=== PATIENT | male | born 2000 | race Caucasian/White ===

== ENCOUNTER 2018-10-09 14:13 | Emergency (ER) | payer BC ==
[2018-10-09 14:27] VITALS: BP 114/67
--- NOTE | 2018-10-09 16:11 | EDPHY ---
General - History History Review: I reviewed the patient's medical records Smoking Status: Never smoked Time Seen by Provider: 10/09/18 15:16 Narrative: CHIEF COMPLAINT: Snowboard injury, laceration HISTORY OF PRESENT ILLNESS: Patient presents to emergency department by private vehicle with complaints of snowboard injury. He says he was boarding just prior to arrival at [place]. He says he collided with 1 of the snow machines. He was wearing a helmet goggles. He says he did not lose consciousness but has a laceration above his right eyebrow. Minimal headache. No nausea vomiting. No visual disturbance. He was able to board down without difficulty. He has no neck pain or stiffness. No chest, back or abdominal pain injury. No complaints of numbness, tingling weakness. Wound is minimally painful. Worse palpation movement. Does not radiate. Tetanus up-to-date. No other associated complaints or modifying factors. TIME OF INJURY: Just prior to arrival TETANUS STATUS: Less than 5 years MEDICAL/SURGICAL/SOCIAL HISTORY: uncomplicated. [employer] student. Originally from [place] REVIEW OF SYSTEMS: Ten systems reviewed and are negative unless otherwise noted in the HPI EXAMINATION: Vitals: Triage VS reviewed General Appearance: Alert, no distress. Well appearing. Head: normocephalic. Right eyebrow laceration as below. There is no Kapoor sign or raccoon eyes. No depression deformity. ENT: Pupils equal round reactive. EOM symmetric. Painless EOMs. No diplopia with EOMs. Airway widely patent. Able to move eyebrows symmetrically with deficit or right eye lid lag Neck: Supple nontender. Midline trachea. Cardiovascular: Regular rhythm. No murmur. Pulses normal throughout. Brisk cap refill Respiratory: Lungs clear in all mejias. Neurological: CN II-XII grossly intact. A&O, sensory symmetric, strength symmetric Skin: Warm and dry, no rash. 3cm right eyebrow laceration. no involvement of frontalis or galea. no foreign body. no involvement of right eyelid. mild right infraorbital ecchymosis only without raccoon eyes Extremities: Nontender, no pedal edema DIFFERENTIAL DIAGNOSES: Including but not limited to laceration, laceration complication, laceration foreign body, laceration with deep tissue injury MDM: 3:15 p.m. Simple laceration over the right eyebrow with minimal distraction and no injury to the underlying deep tissue structures. Patient was wearing a helmet and has no history or examination findings that warrant CT scan imaging by [facility] CT head rules or [place] criteria. He is awake alert. No acute distress but today. Laceration has been anesthetized. Proceed with irrigation and closure. 3:50 p.m. Closed head injury with eyebrow laceration that has been closed without difficulty. We discussed wound care and head injury precautions. We discussed returning here in 7 days for suture removal. I have provided referral information for Dr. Telles. We have discussed ED precautions. He is laughing and well appearing, and he is discharged home in stable condition. PROCEDURE: Laceration repair Consent: Verbal Location: right eyebrow Length of repair: 3cm Complexity: complex Layer involvement: Anesthesia: 0.25% Marcaine with epinephrine, 7 mL Irrigation: Extensive Debridement: none Procedure description: Following good anesthesia, the wound was copiously irrigated. Wound bed was explored with a sterile glove, and there is no foreign body noted. Wound borders were approximated well with good hemostasis. Tolerated well without complication. Suture/Staple material: 6-0 Prolene, 6 simple ruptured sutures Wound care: Routine as discussed Suture/Staple removal: 7 Days SUPERVISION: Independent evaluation ED Precautions: Worsening pain. Erythema, edema, cyanosis, pallor, paresthesia or anesthesia. (Simone Thayer) - Objective Vital Signs: Initial Vital Signs Temperature (C) 36.6 C 10/09/18 14:24 Heart Rate 107 H 10/09/18 14:24 Respiratory Rate 18 10/09/18 14:24 Blood Pressure 114/67 10/09/18 14:24 O2 Sat (%) 94 10/09/18 14:24 O2 Delivery Mode Room Air Allergies/Adverse Reactions: No Known Allergies Allergy (Unverified 10/09/18 14:23) Home Medications: Medication Instructions Recorded NK [No Known Home Meds] 10/09/18 Departure - Departure Disposition: Home, Routine, Self-Care Clinical Impression: Laceration of eyebrow, right Qualifiers: Encounter type: initial encounter Qualified Code(s): S01.111A - Laceration without foreign body of right eyelid and periocular area, initial encounter Closed head injury due to snowboarding Qualifiers: Encounter type: initial encounter Qualified Code(s): S09.90XA - Unspecified injury of head, initial encounter Condition: Good Instructions: Care For Your Stitches (ED), Laceration (ED), Concussion (ED), Head Injury (ED) Additional Instructions: 1. Thin layer of bacitracin once daily for the next 2 days 2. Ice to the affected area as needed. 3. Daily wound care as discussed 4. Return here for suture removal in 7 days 5. Return here for signs of infection as discussed including warmth, redness, fever, drainage from the site 6. return here for increasing pain surrounding the laceration 7. Do not submerge the wound in any water, hot tub, swimming pool until sutures removed 8. Ibuprofen 600 mg every 6-8 hours as needed for headache Referrals: Keesha Telles MD [Medical Doctor] - As per Instructions Physician,Emergency DeptMD [Medical Doctor] - As per Instructions (7 days for suture removal)
== END 2018-10-09 16:21 | disposition home or self-care (01) ==
PROC: 08QQXZZ Repair Right Lower Eyelid, External Approach (ICD-10-PCS; principal; 2018-10-09)
DX: S01.111A Laceration without foreign body of right eyelid and periocular area, initial encounter (principal); S09.90XA Unspecified injury of head, initial encounter; V00.312A Snowboarder colliding with stationary object, initial encounter; Y93.23 Activity, snow (alpine) (downhill) skiing, snowboarding, sledding, tobogganing and snow tubing; Y92.838 Other recreation area as the place of occurrence of the external cause